=== PATIENT | male | born 1940 | race Caucasian/White ===

== ENCOUNTER → 2020-07-07 | Outpatient (CLI) | payer MEDICARE | END | disposition home or self-care (01) | LOC: LAB 15:40 | PROVIDERS: ATTEND Internal Medicine Cardiovascular Disease | DX: I25.10 Atherosclerotic heart disease of native coronary artery without angina pectoris (principal) ==

== ENCOUNTER → 2021-01-07 | Outpatient (CLI) | payer OTHER | END | disposition home or self-care (01) | LOC: MRI 00:09 | PROVIDERS: ATTEND Nurse Practitioner Family | DX: I67.82 Cerebral ischemia (principal) ==

== ENCOUNTER → 2021-03-09 | Outpatient (CLI) | payer MEDICARE | END | disposition home or self-care (01) | LOC: CARD 00:23 | PROVIDERS: ATTEND Internal Medicine Cardiovascular Disease | DX: I77.89 Other specified disorders of arteries and arterioles (principal); Z79.899 Other long term (current) drug therapy ==

== ENCOUNTER → 2021-04-05 | Outpatient (CLI) | payer MEDICARE | END | disposition home or self-care (01) | LOC: RAD 12:29 | PROVIDERS: ATTEND Registered Nurse | DX: R06.00 Dyspnea, unspecified (principal) ==

== ENCOUNTER → 2021-05-26 | Outpatient (CLI) | payer MEDICARE | END | disposition home or self-care (01) | LOC: LAB 13:50 | PROVIDERS: ATTEND Internal Medicine Cardiovascular Disease | DX: I10 Essential (primary) hypertension (principal) ==

== ENCOUNTER → 2022-03-21 | Outpatient (CLI) | payer OTHER | END | disposition home or self-care (01) | LOC: CARD 14:47 | PROVIDERS: ATTEND Nurse Practitioner Family | DX: R55 Syncope and collapse (principal) ==

== ENCOUNTER 2022-06-07 09:15 | Inpatient (IN) | payer OTHER ==
[~2022-06-07] VITALS: Ht 177.8 cm; Wt 95.0 kg
[2022-06-07 09:39] LABS: BASO % 0.6 % (0.0-1.0); EOS # 0.3 10*3/uL (0.0-0.4); EOS % 3.9 % (1.0-4.0); LYMPH # 1.3 10*3/uL (1.3-4.4); LYMPH % 19.6 % (27.0-41.0); MEAN CELL VOLUME 86.8 fl (80.0-94.0); MEAN CORPUSCULAR HGB 27.4 pg (27.0-31.0); MEAN CORPUSCULAR HGB CONC 31.5 g/dl (33.0-37.0); MEAN PLATELET VOLUME 11.1 fl (9.6-12.3); MONO # 0.7 10*3/uL (0.1-1.0); MONO % 10.9 % (3.0-9.0); NEUT # 4.2 10*3/uL (2.3-7.9); NEUT % 64.7 % (47.0-73.0); PLATELET COUNT AUTOMATED 161 10*3/uL (130-400); WHITE BLOOD COUNT 6.4 10*3/uL (4.8-10.8)
[2022-06-07 09:45] VITALS: BP 108/64
[2022-06-07 09:55] LABS: ACT PARTIAL THROMBO TIME 26.6 SECONDS (20.0-32.1)
[2022-06-07 10:00] LABS: ALKALINE PHOSPHATASE 96 U/L (45-117); BUN 18 mg/dl (7-24); CHLORIDE 106 mmol/L (98-107); POTASSIUM 4.2 mmol/L (3.5-5.1); SGOT/AST 21 IU/L (3-35); SGPT/ALT 31 U/L (12-78); SODIUM 137 mmol/L (136-145); TOTAL PROTEIN 7.4 gm/dL (6.4-8.2)
[2022-06-07] MEDS ORDERED: TAMSULOSIN HCL0.4 MG PO (11:35)
[2022-06-07] MEDS ORDERED: METFORMIN HYD1000 MG PO (11:35)
[2022-06-07] MEDS ORDERED: ATENOLOL100 M1 PO (11:36)
[2022-06-07] MEDS ORDERED: MAGNESIUM OXID420 M1 PO (11:36)
[2022-06-07] MEDS ORDERED: LISINOPRIL2.5 MG PO (11:38)
[2022-06-07] MEDS ORDERED: DONEPEZIL HCL10 MG PO (11:38)
[2022-06-07] MEDS ORDERED: JARDIANCE25 MG PO (11:39)
[2022-06-07] MEDS ORDERED: ATORVASTATIN CA40 M1 PO (11:39)
[2022-06-07] MEDS ORDERED: OMEPRAZOLE MAGN20 MG PO (11:40)
[2022-06-07] MEDS ORDERED: CLOPIDOGREL75 MG PO (11:40)
[2022-06-07] MEDS ORDERED: ADULT LOW DOSE81 MG PO (11:41)
[2022-06-07] MEDS ORDERED: GLIPIZIDE10 M2 PO (11:41)
[2022-06-07] MEDS ORDERED: VITAMIN B-121000 MC2 PO (11:44)
[2022-06-07] MEDS ORDERED: ESCITALOPRAM OX10 MG PO (11:45)
[2022-06-07 12:53] VITALS: BP 139/82
[2022-06-07 16:48] VITALS: BP 146/73
[2022-06-07] MEDS ORDERED: SENEXON-S 50-81 EACH PO (17:02)
[2022-06-07] MEDS ORDERED: VITAMIN D3250 MC2 PO (17:03)
[2022-06-07] MEDS ORDERED: [UNRECOGNIZED DRUG - MIXTURE] PO (17:05)
[2022-06-07] MEDS ORDERED: TUMERIC PO (17:06)
[2022-06-07] MEDS ORDERED: GINGER PO (17:06)
[2022-06-07 20:00] VITALS: BP 126/95
[2022-06-08] VITALS: BP 110/64
[2022-06-08 06:12] LABS: BUN 16 mg/dl (7-24); CHLORIDE 104 mmol/L (98-107); CHOLESTEROL 106 mg/dL (<200); CREATININE 1.15 mg/dL (0.70-1.30); POTASSIUM 4.5 mmol/L (3.5-5.1); SGOT/AST 16 IU/L (3-35); SGPT/ALT 26 U/L (12-78); SODIUM 140 mmol/L (136-145); TOTAL PROTEIN 6.4 gm/dL (6.4-8.2); TRIGLYCERIDES 384 mg/dl (<150)
[2022-06-08 06:13] LABS: ALKALINE PHOSPHATASE 93 U/L (45-117); LDL CHOLESTEROL 2 mg/dL (9-159)
[2022-06-08 06:20] LABS: BASO % 0.5 % (0.0-1.0); EOS # 0.3 10*3/uL (0.0-0.4); HEMATOCRIT 42.4 % (42.0-52.0); LYMPH # 1.5 10*3/uL (1.3-4.4); LYMPH % 25.5 % (27.0-41.0); MEAN CELL VOLUME 86.4 fl (80.0-94.0); MEAN CORPUSCULAR HGB 28.3 pg (27.0-31.0); MEAN CORPUSCULAR HGB CONC 32.8 g/dl (33.0-37.0); MEAN PLATELET VOLUME 11.7 fl (9.6-12.3); MONO # 0.7 10*3/uL (0.1-1.0); MONO % 11.8 % (3.0-9.0); NEUT # 3.4 10*3/uL (2.3-7.9); NEUT % 56.9 % (47.0-73.0); PLATELET COUNT AUTOMATED 159 10*3/uL (130-400); RED BLOOD COUNT 4.91 10*6/uL (4.50-5.90); RED CELL DISTRI WIDTH 14.1 % (0-14.5)
[2022-06-08 06:36] LABS: BILIRUBIN Negative (Negative); BLOOD Negative (Negative); CLARITY Clear (Clear); COLOR Yellow (Yellow); GLUCOSE 3+ (Negative); KETONE Negative (Negative); LEUKO ESTERASE Negative (Negative); NITRITE Negative (Negative); PH 5.5 (4.5-8.0); SPECIFIC GRAVITY 1.025 (1.001-1.030); UROBILINOGEN 0.2 E.U./dl (0.0-1.0)
[2022-06-08 09:10] VITALS: BP 170/92
[2022-06-08 12:00] VITALS: BP 148/85
[2022-06-08 16:00] VITALS: BP 160/95
[2022-06-08] MEDS ORDERED: ATORVASTATIN CA80 M1 PO (16:09)
[2022-06-08] MEDS ORDERED: LISINOPRIL5 MG PO (16:09)
== END 2022-06-08 19:53 | disposition home or self-care (01) | DRG 69 ==
LOC: ED 09:15 → EDHOLD 10:06 → 5E 10:06 → EDHOLD 12:34 → 5E 15:57
PROVIDERS: Emergency Medicine; Student in an Organized Health Care Education/Training Program; ADMIT Student in an Organized Health Care Education/Training Program; ATTEND Student in an Organized Health Care Education/Training Program
DX: G45.9 Transient cerebral ischemic attack, unspecified (principal); E44.0 Moderate protein-calorie malnutrition; E66.9 Obesity, unspecified; I10 Essential (primary) hypertension; E78.1 Pure hyperglyceridemia; K21.9 Gastro-esophageal reflux disease without esophagitis; F32.9 Major depressive disorder, single episode, unspecified; Z96.653 Presence of artificial knee joint, bilateral; E11.65 Type 2 diabetes mellitus with hyperglycemia; F03.90 Unspecified dementia, unspecified severity, without behavioral disturbance, psychotic disturbance, mood disturbance, and anxiety; I25.10 Atherosclerotic heart disease of native coronary artery without angina pectoris; N40.0 Benign prostatic hyperplasia without lower urinary tract symptoms; Z79.899 Other long term (current) drug therapy; I25.2 Old myocardial infarction; Z95.1 Presence of aortocoronary bypass graft; Z95.5 Presence of coronary angioplasty implant and graft; Z68.30 Body mass index [BMI] 30.0-30.9, adult

== ENCOUNTER → 2023-12-21 | Outpatient (CLI) | payer MEDICARE, OTHER ==
[~2023-12-21] MED LIST: ADULT LOW DOSE81 MG PO; ASPIRIN CHEWABL81 MG PO; ATENOLOL100 M1 PO; ATORVASTATIN CA40 M1 PO; ATORVASTATIN CA80 M1 PO; CLOPIDOGREL75 MG PO; DONEPEZIL HCL10 MG PO; ESCITALOPRAM OX10 MG PO; GINGER PO; GLIPIZIDE10 M2 PO; INSULIN GL100 UNIT/5 SQ; JARDIANCE25 MG PO; LANTUS SOL100 UNIT/1 SC; LIPITOR80 MG PO; LISINOPRIL2.5 MG PO; LISINOPRIL5 MG PO; MAGNESIUM OXID420 M1 PO; MECLIZINE HYD12.5 MG PO; METFORMIN HYD1000 MG PO; OMEPRAZOLE MAGN20 MG PO; SENEXON-S 50-81 EACH PO; TAMSULOSIN HCL0.4 MG PO; TENORMIN25 MG PO; TUMERIC PO; VITAMIN B-12100 MCG PO; VITAMIN B-121000 MC2 PO; VITAMIN D3250 MC2 PO; [UNRECOGNIZED DRUG - MIXTURE] PO
== END | disposition home or self-care (01) ==
LOC: RAD 13:43
PROVIDERS: ATTEND Registered Nurse
DX: J44.9 Chronic obstructive pulmonary disease, unspecified (principal); R06.09 Other forms of dyspnea; J98.4 Other disorders of lung; R06.02 Shortness of breath

== ENCOUNTER → 2025-06-24 | Outpatient (CLI) | payer OTHER | END | disposition home or self-care (01) | LOC: MRI 00:12 | PROVIDERS: ATTEND Psychiatry & Neurology Neurology | DX: I67.82 Cerebral ischemia (principal); F02.A0 Dementia in other diseases classified elsewhere, mild, without behavioral disturbance, psychotic disturbance, mood disturbance, and anxiety ==